=== PATIENT | male | born 1950 | race Caucasian/White ===

== ENCOUNTER → 2019-04-14 | Outpatient (CLI) | payer MEDICARE, BC ==
[~2019-04-14] MED LIST: CELE50CA PO; DUTA0.5C PO; HYDR12.572 PO; IOHEXOL 240 MG/ML 50ML VIAL. ONE; IOHEXOL 240 MG/ML 50ML VIAL. PO ONE; IOHEXOL 300 MG/ML 75 ML VIAL. IV ONE; LEVO150T5 PO
--- NOTE | 2019-04-14 12:09 | RAD ---
Examination: CT ABD PELV W/ORAL IV CONTRAST History: Right lower quadrant pain Comparison/Correlation: 04/01/2014 CT abdomen and pelvis with oral and IV contrast Findings: Axial images of the abdomen and pelvis were obtained following IV and oral contrast. Sagittal and coronal reformatted images were provided. Small hiatal hernia is present. Liver, spleen, pancreas, adrenal glands and gallbladder fossa are unremarkable. Bilateral renal cysts are present. No hydronephrosis or hydroureter. At the right renal inferior pole, there is a 2.3 cm by by 2.2 cm x 2 cm well-circumscribed structure with Hounsfield units of 51. This is new since the prior exam. Moderate quantity of stool in the colon noted. No inflammatory change about cecum. Diverticulosis is present without findings of acute inflammation. There is a fluid collection along the inferior margin of the distal sigmoid colon measuring 12.2 cm anteroposterior x 5.9 cm transverse by 5.1 cm longitudinal. It is homogeneous with Hounsfield units of 11. L5-S1 pedicle screws and associated rods noted. Minimal anterolisthesis of L5 in relation S1 with intervertebral disc spacer material. Bilateral L5 pars fractures noted. Urinary bladder is unremarkable. Right inguinal surgical clips are present. Impression: Small hiatal hernia. No inflammatory changes about the cecum. Diverticulosis. Simple cystic collection is present subjacent to the distal sigmoid colon with mass effect upon the urinary bladder. No surrounding inflammatory change or solid component. No enhancing component. This may represent a seroma or old hematoma. Correlate clinically. Right renal inferior pole lesion which may represent a mass or possibly hemorrhagic cyst in the interval. Further evaluation with CT of the kidneys without and with contrast or MRI of the kidneys without and with contrast is recommended for more definitive assessment. PQRS Compliance Statement: One or more of the following individualized dose reduction techniques were utilized for this examination: 1. Automated exposure control 2. Adjustment of the mA and/or kV according to patient size 3. Use of iterative reconstruction technique Electronically signed by: Sam Brink MD (04/14/2019 12:06 PM) [facility]
== END | disposition home or self-care (01) ==
LOC: CT 09:32
PROVIDERS: ATTEND Family Medicine
DX: K44.9 Diaphragmatic hernia without obstruction or gangrene (principal); N28.1 Cyst of kidney, acquired; K57.90 Diverticulosis of intestine, part unspecified, without perforation or abscess without bleeding; K57.30 Diverticulosis of large intestine without perforation or abscess without bleeding; I10 Essential (primary) hypertension
CPT/HCPCS: 74177; Q9966; Q9967

== ENCOUNTER → 2019-04-29 | Outpatient (CLI) | payer MEDICARE, BC ==
[~2019-04-29] MED LIST changes: -IOHEXOL 240 MG/ML 50ML VIAL. ONE; -IOHEXOL 240 MG/ML 50ML VIAL. PO ONE
--- NOTE | 2019-04-29 09:19 | RAD ---
PQRS Compliance statement: One or more of the following individualized dose reduction techniques were utilized for this examination: 1. Automated exposure control. 2. Adjustment of the mA and/or kV according to patient size. 3. Use of iterative reconstruction technique. Indication:Renal mass seen on previous CT. TECHNIQUE: CT abdomen and pelvis without and with IV contrast with multiplanar reformats. Arterial, venous and delayed phase images were obtained. COMPARISON: None FINDINGS: Heart is normal in size. No pericardial or pleural effusion. Clear lung bases. Liver, spleen, gallbladder, pancreas, adrenals within normal limits. No nephrolithiasis or hydronephrosis. Bilateral simple renal cysts are seen, the largest in the right kidney measuring 4.4 cm and in the left kidney measuring 2.3 cm. Solid enhancing exophytic mass is seen in the lower pole of the right kidney measuring 2.4 x 2.2 x 2.2 cm compatible with RCC. Partially exophytic medial interpolar left renal mass measuring 1.1 x 1.0 cm compatible with RCC. Renal veins are patent. There is no apparent extension to the collecting system. No enlarged retroperitoneal adenopathy. Visualized bowel is within normal limits. No suspicious bony lesion. IMPRESSION: Bilateral solid enhancing lesions compatible with RCC. Electronically signed by: Tom Love DO (04/29/2019 9:16 AM) [facility]
== END | disposition home or self-care (01) ==
LOC: CT 08:14
PROVIDERS: ATTEND Family Medicine
DX: N28.1 Cyst of kidney, acquired (principal); N28.89 Other specified disorders of kidney and ureter; Z90.89 Acquired absence of other organs; I10 Essential (primary) hypertension
CPT/HCPCS: 74178; Q9967

== ENCOUNTER → 2019-11-16 | Outpatient (CLI) | payer MEDICARE, BC ==
[~2019-11-16] MED LIST changes: -IOHEXOL 300 MG/ML 75 ML VIAL. IV ONE
--- NOTE | 2019-11-16 15:23 | RAD ---
EXAM: Maxillofacial bone CT without contrast. HISTORY: Rhinorrhea. TECHNIQUE: Computed tomographic images of the maxillofacial bones were obtained without contrast. *One or more of the following individualized dose reduction techniques were utilized for this examination: 1. Automated exposure control. 2. Adjustment of the mA and/or kV according to patient size. 3. Use of iterative reconstruction technique. COMPARISON: None. 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 There are small right greater than left maxillary sinus air-fluid levels superimposed on maxillary and ethmoid sinus mucosal thickening. The left frontal sinus is not pneumatized, a normal variant. There is mild mucosal thickening involving the right aspect of the sphenoid sinus. There is rightward nasal septal deviation. There is obstruction of the ostiomeatal units. The orbits are unremarkable. The visualized portions of the brain and calvarium are unremarkable. IMPRESSION: 1. Mild paranasal sinus mucosal thickening and small maxillary sinus air-fluid levels suggesting acute sinusitis. 2. Mild nasal septal deviation. 3. Obstruction of the ostiomeatal units. 4. 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 Electronically signed by: Yana Alvarenga MD (11/16/2019 3:20 PM) [id number]
--- NOTE | 2019-11-16 15:42 | RAD ---
PQRS Compliance Statement: One or more of the following individualized dose reduction techniques were utilized for this examination: 1. Automated exposure control 2. Adjustment of the mA and/or kV according to patient size 3. Use of iterative reconstruction technique CT SOFT TISSUE NECK WO CONTRST 11/16/2019 12:00 AM Indication: Mass along right side neck. Throat issues since July. COMPARISON: None available. TECHNIQUE: Multiple axial CT images of the neck were obtained without intravenous contrast. Coronal and sagittal reformats are provided. FINDINGS: No suspicious normality is identified involving the posterior fossa and visualized portions of the brain parenchyma. Air-fluid levels are identified within the maxillary sinuses, right greater than left. Mild mucosal thickening of left maxillary sinus is identified. No pathologically enlarged cervical lymph nodes are identified. Thyroid gland is normal in appearance with exception of an inferior right thyroid nodule measuring 15 mm. No suspicious right cervical mass is identified. Nasopharynx, oropharynx and hypopharynx are normal in appearance. There is asymmetric dilatation of the left piriform sinus. Debris is noted within the right piriform sinus. Larynx and true cords appear intact. Laryngeal cartilage appears intact. No suspicious pulmonary abnormality is identified. No suspicious osseous abnormality. IMPRESSION: Asymmetric fullness of the right piriform sinus could reflect debris within the piriform sinus. Correlate with direct visualization. Findings are limited without intravenous contrast. No pathologically enlarged cervical adenopathy. Air-fluid levels in bilateral maxillary sinus. Correlate with any signs and symptoms of sinusitis. Inferior right thyroid nodule measures 15 mm. Nonemergent thyroid ultrasound may be of benefit for further evaluation. Electronically signed by: Meenu Henry MD (11/16/2019 3:39 PM) [id number]
== END | disposition home or self-care (01) ==
LOC: CT 10:36
PROVIDERS: ATTEND Otolaryngology
DX: E04.1 Nontoxic single thyroid nodule (principal); J32.9 Chronic sinusitis, unspecified; J34.2 Deviated nasal septum; J34.89 Other specified disorders of nose and nasal sinuses
CPT/HCPCS: 70486; 70490

== ENCOUNTER → 2020-02-08 | Outpatient (CLI) | payer MEDICARE, BC ==
--- NOTE | 2020-02-08 14:59 | RAD ---
CHEST PA LATERAL History: Shortness of breath. Comparison: None. Findings: Mild left basilar linear atelectasis. No consolidation or pleural effusion. Normal heart size. No pneumothorax. Left upper lung calcified granuloma. Impression: 1. Mild left basilar linear atelectasis. Electronically signed by: Azeem Pnoce DO (02/08/2020 2:56 PM) [facility]
== END | disposition home or self-care (01) ==
LOC: RAD 13:49
PROVIDERS: ATTEND Otolaryngology
DX: J84.10 Pulmonary fibrosis, unspecified (principal); J98.11 Atelectasis
CPT/HCPCS: 71046

== ENCOUNTER → 2020-02-21 | Outpatient (CLI) | payer MEDICARE, BC ==
--- NOTE | 2020-02-21 09:26 | RAD ---
CT CHEST WO CONTRAST Indication: Atelectasis Technique: Noncontrast CT imaging was performed of the chest, multiplanar reconstruction images submitted. One or more of the following individualized dose reduction techniques were utilized for this examination: 1. Automated exposure control 2. Adjustment of the mA and/or kV according to patient size 3. Use of iterative reconstruction technique. Comparison: There is no previous dedicated chest CT available. Correlation is made with chest radiograph February 08, 2020. Findings: There is no pericardial or pleural fluid or pneumothorax. There is focus of density of the lingula abutting the pleural surface best seen image 64 series 2 about 2.4 cm transverse by 1.6 cm AP by 1.4 cm CC. There is small calcified nodule posteriorly of the left upper lobe. There are some calcified nodes of the left hilum and mediastinum, no significantly enlarged noncalcified nodes identified. Thoracic aortic caliber is within normal limits. There is an exophytic cyst of the superior right kidney about 4.7 cm, another exophytic likely cyst of the posteromedial right kidney superiorly about 3.8 cm. There is also exophytic cyst projecting laterally from the mid to superior left kidney about 1.6 cm. As seen on previous neck CT November 16, 2019, there is an exophytic nodule projecting inferiorly from the right thyroid gland about 1.4 cm. IMPRESSION: 1. There is mild lingular density which may be atelectasis/small focus of infiltrate. However as an underlying nodule is not excluded, 3 month follow-up is recommended as per Fleischner guidelines. 2. There are bilateral renal cysts, kidneys not fully evaluated. 3. As seen on previous neck CT, there is inferior right thyroid nodule better characterized by ultrasound as per clinical indication. Electronically signed by: Dhaval Reid MD (02/21/2020 9:23 AM) [id number]
== END ==
LOC: CT 08:46
PROVIDERS: ATTEND Otolaryngology
DX: J98.4 Other disorders of lung (principal); N28.1 Cyst of kidney, acquired; E04.1 Nontoxic single thyroid nodule
CPT/HCPCS: 71250

== ENCOUNTER → 2020-03-01 | Outpatient (CLI) | payer MEDICARE, BC ==
--- NOTE | 2020-03-01 10:28 | RAD ---
Thyroid ultrasound 03/01/2020 CLINICAL HISTORY: Thyroid nodule. History of palpable abnormality within the right neck. TECHNIQUE: A real-time ultrasound examination of the thyroid gland was performed. Multiple images were obtained. FINDINGS: Comparison is made to a CT scan of the neck dated 11/16/2019. The thyroid gland is normal in size. It is heterogeneous. The right lobe of the thyroid gland measures 3.9 x 1.6 x 1.7 cm in longitudinal, transverse, and AP dimensions. The left lobe of the thyroid gland measures 3.6 x 1.3 x 1.6 cm in size. The isthmus measures 3 mm in thickness which is within normal limits. Within the inferior aspect of the right lobe of the thyroid gland, a rounded heterogeneous predominantly solid nodule is seen which measures 1.7 cm in size. This corresponds to the abnormality on the patients CT scan. No additional abnormality of the thyroid gland is seen. An oval-shaped well-defined hyperechoic mass is seen in the anterior soft tissues of the right neck 2 to 3 mm deep to the skin surface. Its ultrasound appearance is consistent most likely with a lipoma. IMPRESSION: 1. 1.7 cm solid nodule is seen within the inferior aspect of the right lobe of the thyroid gland which corresponds to abnormality seen on the patients CT scan. Its ultrasound appearance is moderately suspicious (TI-RADS 4). Ultrasound-guided FNA is recommended for further evaluation. 2. 1.8 cm probable lipoma is seen within the anterior soft tissues of the right neck which corresponds to the patient's palpable abnormality. Electronically signed by: Adrian Varela MD (03/01/2020 10:25 AM) [id number]
== END | disposition home or self-care (01) ==
LOC: US 08:46
PROVIDERS: ATTEND Family Medicine
DX: E04.1 Nontoxic single thyroid nodule (principal)
CPT/HCPCS: 76536

== ENCOUNTER → 2020-07-03 | Outpatient (CLI) | payer MEDICARE, BC ==
--- NOTE | 2020-07-03 10:56 | RAD ---
EXAM: CT Chest without IV contrast INDICATION: Reason: EMPHYSEMA LEFT LUNG, FOLLOW UP ABNORMAL XRAY / Spl. Instructions: / History: TECHNIQUE: Multi-detector row CT images were acquired from the thoracic inlet through the upper abdomen without the use of IV contrast. Sagittal and coronal images were acquired from the transaxial data. All CT scans performed at this facility utilize dose optimization techniques as appropriate to the exam, including the following: Automated exposure control and adjustment of the mA and/or KV according to patient size (this includes techniques or standardized protocols for targeted exams where dose is indication/reason for exam). COMPARISON: Noncontrast chest CT of 02/21/2020 FINDINGS: The absence of IV contrast limits evaluation of soft tissue pathology. CARDIOVASCULAR: Unremarkable MEDIASTINUM & CAMDEN: 1.4 cm hypodense inferior pole right thyroid lobe nodule, better evaluated by ultrasound. Otherwise no adenopathy or masses. LUNGS: Nodular opacity in the lingular noted previously recommended for short-term follow-up persists with slightly smaller height, now measuring 2.3 x 1.4 x 0.8 cm in width by AP diameter by height, compared with 2.2 x 2.2 x 1.3 cm previously. Calcified granuloma in the peripheral left upper lobe near the major fissure incidentally noted. Minimal bronchiectasis best appreciated in the lower lobes. PLEURAL SPACE: No pleural effusions or pneumothorax. OSSEOUS & SOFT TISSUE: Unremarkable ABDOMEN: Visualized upper abdomen again shows partially imaged renal cortical cysts fatty mass in the medial aspect of the left kidney compatible with an angiomyolipoma. The renal cortical cysts do not require additional imaging follow-up. IMPRESSION: Persistent, slightly smaller lingula nodule is reidentified on 3 month follow-up. Although this may be considered for biopsy or PET CT, it is suspected to represent atelectasis or scarring and as such might benefit from continued surveillance. Consider additional follow-up imaging such as repeat CT in 6 months. Electronically signed by: Sheeba Cross MD (07/03/2020 10:53 AM) [id number]
== END ==
LOC: CT 08:37
PROVIDERS: ATTEND Family Medicine
DX: J98.11 Atelectasis (principal); R91.1 Solitary pulmonary nodule
CPT/HCPCS: 71250

== ENCOUNTER → 2020-12-19 | Outpatient (CLI) | payer MEDICARE, BC ==
--- NOTE | 2020-12-20 16:30 | RAD ---
EXAM: CT CHEST WITHOUT CONTRAST HISTORY: Atelectasis of left lung COMPARISON: CT chest 07/03/2020 TECHNIQUE: Helical CT of the chest performed without contrast. Coronal and sagittal reformats were o btained. One or more of the following individualized dose reduction techniques were utilized for this examinat ion: 1. Automated exposure control 2. Adjustment of the mA and/or kV according to patient size 3. Use of iterative reconstruction technique. FINDINGS: Thyroid gland and thoracic inlet: Unchanged 1.5 cm inferior right thyroid nodule. Heart and great vessels: The heart is normal in size. No pericardial effusion. There are coronary art dalia calcifications. Thoracic aorta is normal in caliber. Mediastinum and abby: No mediastinal or hilar adenopathy. There are calcified left hilar lymph nodes. Lungs and pleura: The opacities in the lingula are less nodular in appearance and more indistinct. A calcified granuloma in the left upper lobe is unchanged. The lungs are otherwise clear. No pleural ef fusion. Chest wall and axillae: No axillary lymphadenopathy. Upper abdomen: Unchanged chest patient's the pancreatic head suggesting chronic pancreatitis. There a re 2 simple cyst in the right kidney measuring up to 4.2 cm. Bones: No acute osseous abnormality. IMPRESSION: The opacities in the lingula are less nodular in appearance and more indistinct, likely a telectasis. Consider follow-up CT in 6 months to ensure stability. Electronically signed by: Cecelia Villalba MD (12/20/2020 4:27 PM) [id number]
== END ==
LOC: CT 10:46
PROVIDERS: ATTEND Family Medicine
DX: J84.10 Pulmonary fibrosis, unspecified (principal); J98.11 Atelectasis; I25.10 Atherosclerotic heart disease of native coronary artery without angina pectoris; E04.1 Nontoxic single thyroid nodule; N28.1 Cyst of kidney, acquired; I89.8 Other specified noninfective disorders of lymphatic vessels and lymph nodes
CPT/HCPCS: 71250